=== PATIENT | female | born 1975 | race Caucasian/White ===

== ENCOUNTER → 2016-08-03 | Outpatient (CLI) | payer BC ==
--- OUTSIDE RECORDS SUMMARY | 2016-08-03 11:44 | XMS REPORT | Continuity of Care Document ---
Author Author [facility] Organization [facility] Address Unknown Phone Unavailable Allergies Active Description Code Type Severity Reaction Onset Reported/Identified Relationship to Patient Clinical Status Yes erythromycin base [id number] Drug Allergy Unknown N/A 05/04/2008 Medications Problems Date Dx Coded Attending Type Code Diagnosis Diagnosed By 11/14/2014 THOMPSON VINES, LISSA Dick Ot 793.80 07/29/2015 Ot 610.1 07/29/2015 Ot V16.3 07/29/2015 Ot V76.11 07/29/2015 THOMPSON VINES, LISSA Dick Ot 793.80 07/29/2015 THOMPSON VINES, LISSA Dick Ot V76.11 07/29/2015 THOMPSON VINES, LISSA A Ot 793.80 07/29/2015 Ot 610.1 07/29/2015 Ot V16.3 07/29/2015 Ot V76.11 07/29/2015 THOMPSON VINES, LISSA A Ot 793.80 07/29/2015 THOMPSON VINES, LISSA A Ot V76.11 07/29/2015 THOMPSON VINES, LISSA A Ot 793.80 08/08/2015 Ot 610.1 08/08/2015 Ot V16.3 08/08/2015 Ot V76.11 08/08/2015 THOMPSON VINES, LISSA A Ot 793.80 08/08/2015 THOMPSON VINES, LISSA A Ot V76.11 08/08/2015 THOMPSON VINES, LISSA Dick Ot 793.80 09/26/2015 MALIA VAN Ot Z12.31 ENCNTR SCREEN MAMMOGRAM FOR MALIGNANT NE 11/16/2015 Ot 610.1 DIFFUS CYSTIC MASTOPATHY 11/16/2015 Ot V16.3 FAMILY HX-BREAST MALIG 11/16/2015 Ot V76.11 SCRN MAMMO-HIGH RISK PT, MALIGNANT NEOPL 11/16/2015 THOMPSON VINES, LISSA Dick Ot 793.80 UNSPEC ABNORMAL MAMMOGRAM 11/16/2015 THOMPSON VINES, LISSA Dick Ot V76.11 SCRN MAMMO-HIGH RISK PT, MALIGNANT NEOPL 11/16/2015 THOMPSON VINES, LISSA A Ot 793.80 UNSPEC ABNORMAL MAMMOGRAM 11/16/2015 MALIA VAN Ot Z12.31 ENCNTR SCREEN MAMMOGRAM FOR MALIGNANT NE 02/17/2016 Ot 610.1 DIFFUS CYSTIC MASTOPATHY 02/17/2016 Ot V16.3 FAMILY HX-BREAST MALIG 02/17/2016 Ot V76.11 SCRN MAMMO-HIGH RISK PT, MALIGNANT NEOPL 02/17/2016 THOMPSON VINES, LISSA A Ot 793.80 UNSPEC ABNORMAL MAMMOGRAM 02/17/2016 THOMPSON VINES, LISSA A Ot V76.11 SCRN MAMMO-HIGH RISK PT, MALIGNANT NEOPL 02/17/2016 THOMPSON VINES, LISSA A Ot 793.80 UNSPEC ABNORMAL MAMMOGRAM 02/17/2016 MALIA VAN Ot Z12.31 ENCNTR SCREEN MAMMOGRAM FOR MALIGNANT NE 03/26/2016 Ot 610.1 DIFFUS CYSTIC MASTOPATHY 03/26/2016 Ot V16.3 FAMILY HX-BREAST MALIG 03/26/2016 Ot V76.11 SCRN MAMMO-HIGH RISK PT, MALIGNANT NEOPL 03/26/2016 THOMPSON VINES, LISSA A Ot 793.80 UNSPEC ABNORMAL MAMMOGRAM 03/26/2016 THOMPSON VINES, LISSA Dick Ot V76.11 SCRN MAMMO-HIGH RISK PT, MALIGNANT NEOPL 03/26/2016 THOMPSON VINES, LISSA A Ot 793.80 UNSPEC ABNORMAL MAMMOGRAM 03/26/2016 MALIA VAN Ot Z12.31 ENCNTR SCREEN MAMMOGRAM FOR MALIGNANT NE 08/03/2016 Ot 610.1 DIFFUS CYSTIC MASTOPATHY 08/03/2016 Ot V16.3 FAMILY HX-BREAST MALIG 08/03/2016 Ot V76.11 SCRN MAMMO-HIGH RISK PT, MALIGNANT NEOPL 08/03/2016 THOMPSON VINES, LISSA A Ot 793.80 UNSPEC ABNORMAL MAMMOGRAM 08/03/2016 LISSA MACKAY MD Ot V76.11 SCRN MAMMO-HIGH RISK PT, MALIGNANT NEOPL 08/03/2016 LISSA MACKAY MD A Ot 793.80 UNSPEC ABNORMAL MAMMOGRAM 08/03/2016 MALIA VAN Ot Z12.31 ENCNTR SCREEN MAMMOGRAM FOR MALIGNANT NE Procedures Results Encounters ACCT No. Visit Date/Time Discharge Status Pt. Type Provider Facility Loc./Unit Complaint [id number] 09/28/2014 07:45:00 2014 23:59:59 CLS Outpatient LISSA MACKAY MD [facility] RAD ABNORMAL INDIGO [id number] 09/21/2014 08:49:00 2014 23:59:59 CLS Outpatient LISSA MACKAY MD [facility] RAD SCREENING [id number] 09/23/2015 10:24:00 ACT Outpatient MALIA VAN [facility] RAD SCREENING [id number] 03/05/2012 09:21:00 Document Registration
--- NOTE | 2016-08-03 16:20 | Diagnostic Imaging Report ---
INDICATION: Left-sided pelvic pain. Pelvic sonography is performed with transabdominal and transvaginal views. The uterus is retroverted and measures 8.6 x 4.5 x 4.6 cm. There is no uterine mass. The endometrium measures about 7 mm in diameter. There is a small amount of free fluid. The right ovary is unremarkable and measure 4.2 x 2.0 x 1.9 cm. There are few follicular cysts in the right ovary. The left ovary measures 3.3 x 1.8 x 2.2 cm and contains a cyst with internal echoes measuring 2.3 x 1.8 x 1.8 cm, likely a hemorrhagic cyst. IMPRESSION: Retroverted uterus. 2.3 x 1.8 cm likely hemorrhagic cyst in left ovary. Small amount of free fluid. Consider follow-up as clinically warranted. Dictated by: Dictated on workstation # [id number]
== END ==
LOC: RAD 11:40
PROVIDERS: ATTEND Nurse Practitioner
DX: R10.32 Left lower quadrant pain (principal); N85.4 Malposition of uterus
CPT/HCPCS: 76830; 76856

== ENCOUNTER → 2016-08-09 | Outpatient (CLI) | payer BC ==
[~2016-08-09] MED LIST: CATHETER FLUSH 10 ML SYR IV PRN; IOHEXOL 350 MG/ML 100 ML (OMNIPAQUE 350) VIAL IV ONE; NS 100 ML (IVPB) BAG IV ONE
--- NOTE | 2016-08-09 12:03 | Diagnostic Imaging Report ---
PROCEDURE: CT abdomen and pelvis with contrast. TECHNIQUE: Multiple contiguous axial images were obtained through the abdomen and pelvis after administration of intravenous contrast. INDICATION: Left lower quadrant pain, back pain, diarrhea and bloating. FINDINGS: Stomach, duodenum, small and large bowel are all unobstructed, nonacute and nonfocal. No perienteric or pericolonic edema. No hollow visceral inflammatory process. Kidneys unobstructed and normal. Liver, gallbladder, spleen, adrenals, pancreas all unremarkable. Aortoiliac and mesenteric vessels patent and nonaneurysmal. The uterus is retroflexed. Left ovarian follicular cyst measures 13 mm. There is minute free fluid in the cul-de-sac unremarkable in a female patient of this age. Some prominence of tissues at the level of the cervix however, this is often exaggerated by a retroflexed uterus itself. Pelvic exam however suggested on nonemergent basis if not performed recently. IMPRESSION: 1. Physiologic left adnexal cyst. Retroflexed uterus with prominence of tissue at the level of the cervix may be physiologic and owing to the uterine orientation itself however pathological cervical enlargement could not be excluded. 2. The study is otherwise normal in particular showing no findings to explain the presenting complaint of diarrhea, bloating and left lower quadrant pain. Dictated by: Dictated on workstation # [id number]
== END ==
LOC: RAD 09:37
PROVIDERS: ATTEND Nurse Practitioner
DX: R10.32 Left lower quadrant pain (principal)
CPT/HCPCS: 74177

== ENCOUNTER → 2016-10-09 | Outpatient (CLI) | payer BC ==
--- NOTE | 2016-10-09 16:51 | Diagnostic Imaging Report ---
PROCEDURE: US Thyroid. TECHNIQUE: Multiple real-time grayscale images were obtained of the thyroid in various projections. INDICATION: Enlarged thyroid. FINDINGS: The right thyroid lobe is 5.4 x 2 x 2 cm. The left lobe is 5.8 x 2 x 2.2 cm. There is a solid nodule seen in the inferior aspect of the left lobe measuring 0.8 x 0.7 x 0.6 cm. The background thyroid parenchyma is slightly heterogeneous and hypervascular which may relate to thyroiditis. IMPRESSION: Hypervascular heterogenous thyroid parenchyma. Indeterminate solid nodule measuring 0.8 cm in the inferior aspect of the left lobe. A followup exam in 6 months is suggested. Dictated by: Dictated on workstation # [id number]
--- NOTE | 2016-10-10 10:20 | Diagnostic Imaging Report ---
Bilateral screening mammogram. The current study was also evaluated with a Computer Aided Detection (CAD) system. INDICATION: Screening. No current complaints stated on the questionnaire. COMPARISON: 09/23/2015. FINDINGS: The breasts are composed of extremely dense parenchyma which may decrease mammographic sensitivity. There is an asymmetry along the outer aspect of the left breast seen on the CC projection. The right breast demonstrates no definite change. IMPRESSION: Dense breasts. There is an asymmetry seen along the lateral aspect of the left breast which could be summation artifact from the dense parenchyma. Focal compression views and ultrasound evaluation is recommended. ACR BI-RADS Category 0: Incomplete. (Needs additional imaging evaluation). Result letter will be mailed to the patient. Note: At least 10% of breast cancer is not imaged by mammography. Dictated by: Dictated on workstation # [id number]
== END ==
LOC: RAD 14:52
PROVIDERS: ATTEND Nurse Practitioner
DX: Z12.31 Encounter for screening mammogram for malignant neoplasm of breast (principal); E04.1 Nontoxic single thyroid nodule
CPT/HCPCS: 76536; 77067

== ENCOUNTER → 2016-10-22 | Outpatient (CLI) | payer BC ==
--- NOTE | 2016-10-22 08:57 | Diagnostic Imaging Report ---
EXAMINATION: Left breast diagnostic mammogram. INDICATION: Asymmetry seen along the outer aspect of the left breast on screening of 10/22/16. CAD is utilized. The current study was also evaluated with a Computer Aided Detection (CAD) system. FINDINGS: Focal compression view demonstrate no underlying abnormality at the site of asymmetry seen in the outer aspect of the left breast. There is however in the central aspect of this view asymmetry that was not seen on the prior CC projection. The patient has dense background parenchyma and is suspected to be related to summation artifact. The lateral projection demonstrate no definite mass. IMPRESSION: Left cc projection lateral and central asymmetries are favored to be related to summation artifact of parenchyma. Ultrasound evaluation pending. BI-RADS 0. ACR BI-RADS Category 0: Incomplete. (Needs additional imaging evaluation). Result letter will be mailed to the patient. Note: At least 10% of breast cancer is not imaged by mammography. Dictated by: Dictated on workstation # [id number]
--- NOTE | 2016-10-22 19:19 | Diagnostic Imaging Report ---
EXAMINATION: Left breast ultrasound. INDICATION: Asymmetry in the outer aspect of the left breast and in the central aspect of the focal compression view in the CC projection. FINDINGS: The four quadrants and retroareolar region of the left breast were scanned with no underlying abnormality seen. IMPRESSION: Negative study. Six-month followup left breast mammogram is recommended to ensure stability to include a focal compression view in the CC projection. ACR BI-RADS Category 3: Probably benign findings. Dictated by: Dictated on workstation # [id number]
== END ==
LOC: RAD 08:15
PROVIDERS: ATTEND Nurse Practitioner
DX: R92.8 Other abnormal and inconclusive findings on diagnostic imaging of breast (principal)
CPT/HCPCS: 76641

== ENCOUNTER 2021-08-15 18:05 | Emergency (ER) | payer BC ==
[~2021-08-15] VITALS: Ht 172 cm; Wt 58.9 kg
--- NOTE | 2021-08-15 19:03 | ED Lower Extremity ---
General Chief Complaint: Lower Extremity Stated Complaint: HURT ANKLE AT HOME Nursing Triage Note: PT ARRIVES WITH CRUTCHES WITH VISITOR. REPORTS EARLIER TODAY STEPPED IN A HOLE AND INJURED R ANKLE THEN LATER IN THE DAY SLIPPED OFF OF THE SIDEWALK, C/O WORSENING R ANKLE PAIN. Source: patient Exam Limitations: no limitations (MARK TSANG APRN) History of Present Illness Date Seen by Provider: Aug 15, 2021 Time Seen by Provider: 19:01 Initial Comments Right lateral ankle pain and swelling after she stepped in a hole and then slipped off of a sidewalk earlier today. Onset: just prior to arrival Severity: moderate Pain/Injury Location: right ankle Method of Injury: fell Modifying Factors: Worse With Movement (MARK TSANG APRN) Allergies and Home Medications Allergies Coded Allergies: Erythromycin Base (Verified Allergy, Unknown, 05/04/08) Patient Home Medication List Home Medication List Reviewed: Yes (MARK TSANG APRN) Review of Systems Constitutional: see HPI EENTM: see HPI Respiratory: no symptoms reported Cardiovascular: no symptoms reported Genitourinary: no symptoms reported Musculoskeletal: see HPI Skin: no symptoms reported Psychiatric/Neurological: No Symptoms Reported (MARK TSANG APRN) Past Ripsxbt-Cyeyyu-Zkobcb Hx Patient Social History Tobacco Use?: No Use of E-Cig and/or Vaping dev: No Substance use?: No Alcohol Use?: No Pt feels they are or have been: No (MARK TSANG APRN) Immunizations Up To Date First/Initial COVID19 Vaccinat: NO (MARK TSANG APRN) Past Medical History Last Menstrual Period: Aug 12, 2021 Reproductive Disorders: No (MARK TSANG APRN) Physical Exam Vital Signs Vital Signs - First Documented 08/15/21 18:10 Temp 36.9 Pulse 107 Resp 18 B/P (MAP) 123/78 (93) Pulse Ox 95 O2 Delivery Room Air (PITA BARTLETT DO) Vital Signs Capillary Refill : (MARK TSANG APRN) Height, Weight, BMI Height: '" Weight: lbs. oz. kg; 19.00 BMI Method: General Appearance: WD/WN, no apparent distress HEENT: PERRL/EOMI, normal ENT inspection Neck: non-tender, full range of motion Respiratory: no respiratory distress, no accessory muscle use Hips: bilateral hip non-tender, bilateral hip normal inspection, bilateral hip normal range of motion Legs: bilateral leg non-tender, bilateral leg normal inspection, bilateral leg normal range of motion Knees: bilateral knee non-tender, bilateral knee normal inspection, bilateral knee normal range of motion Ankles: right ankle pain, right ankle soft tissue tenderness, right ankle swelling, right ankle other (strong dp pulse. ) Feet: bilateral foot non-tender, bilateral foot normal inspection, bilateral foot normal range of motion Neurologic/Psychiatric: alert, normal mood/affect, oriented x 3 Skin: normal color, warm/dry (MARK TSANG APRN) Progress/Results/Core Measures Results/Orders Vital Signs/I&O 08/15/21 08/15/21 18:10 19:51 Temp 36.9 36.5 Pulse 107 88 Resp 18 18 B/P (MAP) 123/78 (93) 122/74 Pulse Ox 95 99 O2 Delivery Room Air Room Air (PITA BARTLETT DO) Blood Pressure Mean: 93 Departure Impression Primary Impression: Sprain and strain of ankle Disposition: 01 HOME, SELF-CARE Condition: Stable Departure-Patient Inst. Decision time for Depature: 19:37 (MARK TSANG APRN) Referrals: JONATHON MENDES MD (PCP/Family) Primary Care Physician Patient Instructions: Ankle Sprain ED Add. Discharge Instructions: 1. Elevate as much as possible for the next 2-3 days 2. Return to ER for any concerns 3. Crutches as needed--when you can walk without significant pain then you can stop using the crutches. Follow up with Dr Mendes later this week. All discharge instructions reviewed with patient and/or family. Voiced understanding. ATTENDING PHYSICIAN NOTE: I WAS PHYSICALLY PRESENT ER PHYSICIAN, BUT I WAS NOT INVOLVED IN ANY DECISION MAKING OR ANY CARE OF THIS PATIENT. (PITA BARTLETT DO) MARK TSANG APRN Aug 15, 2021 19:03 PITA BARTLETT DO Aug 16, 2021 03:30
--- NOTE | 2021-08-15 19:10 | Diagnostic Imaging Report ---
CLINICAL HISTORY: Fall. Right ankle pain. COMPARISON: None. TECHNIQUE: 3 views of the right ankle. FINDINGS: There is no acute fracture or dislocation of the right ankle. Alignment is anatomic. The imaged joint spaces are preserved. IMPRESSION: 1. No acute fracture or dislocation in the right ankle. Dictated by: Dictated on workstation # [id number]
[2021-08-15 19:51] VITALS: BP 122/74
== END 2021-08-15 19:56 | disposition home or self-care (01) ==
LOC: EDUNIT# 18:05 → ER 18:09
DX: S93.401A Sprain of unspecified ligament of right ankle, initial encounter (principal); W01.0XXA Fall on same level from slipping, tripping and stumbling without subsequent striking against object, initial encounter
CPT/HCPCS: 73610

== ENCOUNTER → 2021-11-14 | Outpatient (CLI) | payer BC ==
--- NOTE | 2021-11-14 17:08 | Diagnostic Imaging Report ---
INDICATION: Routine screening. COMPARISON: 10/09/2016 and 09/23/2015. TECHNIQUE: 2D and 3D bilateral screening mammography was performed with CAD. FINDINGS: Both breasts are heterogeneously dense, limiting the sensitivity of mammography. The parenchymal pattern is stable. No mass or malignant-appearing microcalcifications are seen. The axillae are unremarkable. IMPRESSION: No mammographic features suspicious for malignancy are identified. ACR BI-RADS Category 1: Negative. Result letter will be mailed to the patient. Note: At least 10% of breast cancer is not imaged by mammography. Dictated by: Dictated on workstation # [id number]
== END ==
LOC: RAD 13:03
PROVIDERS: ATTEND Nurse Practitioner Family
DX: Z12.31 Encounter for screening mammogram for malignant neoplasm of breast (principal)
CPT/HCPCS: 77063; 77067